=== PATIENT | female | born 1995 | race American Indian/Alaskan Native ===

== ENCOUNTER 2022-03-14 08:26 | Outpatient (CLI) | payer BC ==
--- NOTE | 2022-03-14 16:32 | Mammography Report ---
DIGITAL SCREENING MAMMOGRAM WITH CAD, 03/14/2022 CLINICAL INFORMATION / INDICATION: Routine screening mammography. SCREENING MAMMOGRAM Z12.31 TECHNIQUE: Digital bilateral 2D mammography was obtained in the craniocaudal and mediolateral obliqu e projections. This examination was interpreted with the benefit of Computer-Aided Detection analysis . COMPARISON: Baseline FINDINGS: Breast Density: The breasts are extremely dense, which lowers the sensitivity of mammography. No dominant mass, suspicious calcifications, or architectural distortion in the left breast. There is a focal nodular density in the posterior central right breast seen on the cc view only. IMPRESSION: Further evaluation of the focal nodular density in the right breast is recommended. Follow up recommendation: Special View: Spot Compression with possible ultrasound. BI-RADS Category 0: INCOMPLETE. Needs additional imaging evaluation and/or prior mammograms for annette hidalgo. A "normal" or negative report should not discourage follow up or biopsy of a clinically significant f inding. A written summary of these findings will be mailed to the patient. The patient will be entered into a mammography reporting system which will generate a reminder letter for the patient's next appointmen t at the appropriate interval. The [employer] recommends yearly mammograms starting at age 40 and continuing as l herve as a woman is in good health. Breast MRI is recommended for women with an approximate 20-25% or greater lifetime risk of breast cancer, including women with a strong family history of breast or [place] cancer or who have been treated for Hodgkin's disease. Signer Name: Hakeem Zelaya MD Signed: 03/14/2022 4:28 PM Workstation Name: [id number]
== END 2022-03-14 08:27 | disposition home or self-care (01) ==
LOC: MAMMO 08:26
PROVIDERS: ATTEND Surgery
DX: Z12.31 Encounter for screening mammogram for malignant neoplasm of breast (principal)
CPT/HCPCS: 77067

== ENCOUNTER 2022-03-22 12:52 | Outpatient (CLI) | payer BC ==
--- NOTE | 2022-03-22 15:35 | Mammography Report ---
RIGHT DIGITAL DIAGNOSTIC MAMMOGRAM CONVENTIONAL, 03/22/2022 RIGHT LIMITED BREAST ULTRASOUND CLINICAL INFORMATION / INDICATION: Follow-up of indeterminate nodular density seen in the right breas t on recent screening mammogram. TECHNIQUE: Digital right mammographic imaging was performed. Spot compression views were obtained. Li mited ultrasound was performed. COMPARISON: Screening mammogram dated 03/14/2022. FINDINGS: Breast Density: The breast is heterogeneously dense, which may obscure small masses. MAMMOGRAPHIC FINDINGS: The previously reported posterior nodular density located just lateral to the nipple line persists without significant interval changes on spot compression imaging. No new signifi cant abnormality is identified. ULTRASOUND FINDINGS: Targeted ultrasound evaluation was performed of the area of interest. Multiple hypoechoic nodules are seen throughout the right breast including a 7.7 x 3.7 x 6.6 mm nodule in the 9:00 position 6 cm from the nipple that likely correlates with the mammographic finding. Additional circumscribed hypoechoic nodules are seen in the 10:00 and 11:00 positions measuring up to 1.2 cm. No other significant abnormality. IMPRESSION: Multiple benign-appearing nodules in the right breast as above with a 9:00 nodule correla ting with the prior mammographic finding. These findings are favored to be benign and should be reeva luated with a limited right breast ultrasound in 6 months to ensure stability. Follow up recommendation: Ultrasound BI-RADS Category 3: PROBABLY BENIGN. Followup in 6 months. A "normal" or negative report should not discourage follow up or biopsy of a clinically significant f inding. A written summary of these findings will be mailed to the patient. The patient will be entered into a mammography reporting system which will generate a reminder letter for the patient's next appointmen t at the appropriate interval. According to the [employer], yearly mammograms are recommended starting at age 40 and continuing as long as a woman is in good health. Breast MRI is recommended for women with an [place] roximately 20-25% or greater lifetime risk of breast cancer, including women with a strong family his tory of breast or ovarian cancer and women who have been treated for Hodgkin's disease. Signer Name: Garcia Reyes MD Signed: 03/22/2022 3:31 PM Workstation Name: [id number]
== END 2022-03-22 12:53 | disposition home or self-care (01) ==
LOC: US 12:52
PROVIDERS: ATTEND Surgery
DX: N63.11 Unspecified lump in the right breast, upper outer quadrant (principal)